=== PATIENT | female | born 1990 ===

== ENCOUNTER 2020-06-21 21:37 | Emergency (ER) | payer BC ==
[~2020-06-21] VITALS: Ht 165.1 cm; Wt 57.6 kg
[2020-06-21] MEDS ORDERED: ONDA4TAB8 PO (22:00)
[2020-06-21] MEDS ORDERED: TRAZ-257 PO (22:00)
[2020-06-21] MEDS ORDERED: BUPR100T5 PO (22:00)
[2020-06-21] MEDS ORDERED: CLON0.1T PO (22:00)
[2020-06-21] MEDS ORDERED: METH750T3 PO (22:00)
[2020-06-21] MEDS ORDERED: QUET100T PO (22:00)
[2020-06-21] MEDS ORDERED: PREG100C PO (22:00)
--- NOTE | 2020-06-21 22:00 | NUR ---
MSE COMPLETED, PT TO BE OBSERVED X 2 HRS
--- NOTE | 2020-06-21 23:50 | NUR ---
MSE COMPLETED,PT DENIED ANY COMPLAINTS, A/O X3. PT D/C'D WITH HOMELESS PACKET/RX X1. PT AMBULATED W/O DIFF/TOOK ALL BELONGINGS.
[2020-06-21 23:52] VITALS: BP 118/82
== END 2020-06-21 23:52 | disposition home or self-care (01) ==
LOC: ER 21:37
DX: T40.1X1A Poisoning by heroin, accidental (unintentional), initial encounter (principal); R40.4 Transient alteration of awareness; F11.10 Opioid abuse, uncomplicated; Y92.89 Other specified places as the place of occurrence of the external cause; J45.909 Unspecified asthma, uncomplicated; F32.9 Major depressive disorder, single episode, unspecified; Z79.899 Other long term (current) drug therapy; Z59.0 Homelessness
CPT/HCPCS: A4663